=== PATIENT | female | born 1950 | race Caucasian/White ===

== ENCOUNTER → 2016-05-15 | Outpatient (CLI) | payer MEDICARE ==
[~2016-05-15] MED LIST: CALC600T10 OR; CETI10TA OR; OMEP20TA7 OR; SPIR25TA2 OR
--- NOTE | 2016-05-15 11:25 | REPMRS ---
Patient History The patient states she had a clinical breast exam in 05/2016. Patient is postmenopausal. Family history of colorectal cancer in mother at age 50 or over and prostate cancer in 2 brothers at age 50 or over. Digital Woman Screen Mammo: May 15, 2016 - Exam #: [id number] Bilateral CC and MLO view(s) were taken. Technologist: Ave [place] Technologist Prior study comparison: October 13, 2013, digital woman screen mammo performed at [facility]. October 17, 2011, digital woman screen mammo performed at [facility]. June 30, 2010, bilateral bilat screen digital mammo performed at [facility] to [facility]. FINDINGS: The breast tissue is almost entirely fat. There has been no change in the appearance of the mammogram from the prior studies. There is no interval development of dominant mass, architectural distortion, or clustered microcalcification typical of malignancy. ASSESSMENT: BI-RADS/ACR category 1 mammogram. Negative. Recommendation Routine screening mammogram of both breasts in 1 year (for women over age 40). This mammogram was interpreted with the aid of an FDA-approved computer-aided dectection system. Electronically Signed By: Bruno Mancia MD 05/15/16 1127
== END ==
LOC: M WHC 09:44
PROVIDERS: ATTEND Nurse Practitioner Women's Health
DX: Z01.419 Encounter for gynecological examination (general) (routine) without abnormal findings (principal); Z12.31 Encounter for screening mammogram for malignant neoplasm of breast; Z78.0 Asymptomatic menopausal state; Z12.12 Encounter for screening for malignant neoplasm of rectum; Z80.0 Family history of malignant neoplasm of digestive organs; Z80.42 Family history of malignant neoplasm of prostate
CPT/HCPCS: 82270; G0101; G0202

== ENCOUNTER → 2018-06-03 | Outpatient (CLI) | payer MEDICARE ==
--- NOTE | 2018-06-03 13:34 | REPMRS ---
Patient History The patient states she had a clinical breast exam in 05/27 Patient is postmenopausal. Family history of colorectal cancer at age 50 or over in mother, prostate cancer at age 50 or over in brother, prostate cancer in brother. Digital Woman Screen Mammo: June 03, 2018 - Exam #: [id number] Bilateral CC and MLO view(s) were taken. Technologist: Kristine Forbes, Technologist Prior study comparison: May 15, 2016, digital woman screen mammo performed at [facility]. October 13, 2013, digital woman screen mammo performed at [facility]. October 17, 2011, digital woman screen mammo performed at [facility]. FINDINGS: The breast tissue is almost entirely fat. There has been no change in the appearance of the mammogram from the prior studies. There is no interval development of dominant mass, architectural distortion, or clustered microcalcification typical of malignancy. 3-D tomosynthesis shows no additional findings. Assessment: BI-RADS/ACR category 1 mammogram. Negative Mammogram. Recommendation Routine screening mammogram of both breasts in 1 year (for women over age 40). This patient's Lifetime Breast Cancer RIsk is estimated at 4.0 %. This mammogram was interpreted with the aid of an FDA-approved computer-aided dectection system. Electronically Signed By: Bruno Mancia MD 06/03/18 9798
== END ==
LOC: M WHC 11:16
PROVIDERS: ATTEND Nurse Practitioner Women's Health
DX: Z01.419 Encounter for gynecological examination (general) (routine) without abnormal findings (principal); Z12.31 Encounter for screening mammogram for malignant neoplasm of breast; Z78.0 Asymptomatic menopausal state; Z80.0 Family history of malignant neoplasm of digestive organs
CPT/HCPCS: 77063; 77067; G0101